=== PATIENT | female | born 2000 | race Caucasian/White ===

== ENCOUNTER 2022-07-27 14:18 | Emergency (ER) | payer MEDICAID, OTHER ==
[~2022-07-27] VITALS: Ht 162.6 cm; Wt 68.0 kg
[2022-07-27] MEDS ORDERED: GUAI-450 MT (15:12)
[2022-07-27] MEDS ORDERED: DEXAMETHASONE 10 MG/ML VIAL PO ONE (15:15)
[2022-07-27 15:21] VITALS: BP 112/68
== END 2022-07-27 15:22 | disposition home or self-care (01) ==
LOC: ER 14:18
DX: J02.9 Acute pharyngitis, unspecified (principal)
CPT/HCPCS: 81025; 99283; J1100; Z7610

== ENCOUNTER 2024-01-29 09:18 | Emergency (ER) | payer MEDICAID, OTHER ==
[~2024-01-29] VITALS: Ht 160 cm; Wt 56.0 kg
[~2024-01-29 09:18] MED LIST: GUAI-450 MT
[2024-01-29 09:21] VITALS: BP 120/88; PULSE 95; RESP 18; TEMP 98.3; O2SAT 100
== END 2024-01-29 18:41 | disposition left against medical advice (07) ==
LOC: ER 10:40
DX: M79.89 Other specified soft tissue disorders (principal); Z53.21 Procedure and treatment not carried out due to patient leaving prior to being seen by health care provider
CPT/HCPCS: 99283